=== PATIENT | female | born 1975 | race American Indian/Alaskan Native ===

== ENCOUNTER 2017-11-19 11:28 | Inpatient (IN) | payer BC ==
[2017-11-19] MEDS ORDERED: ceFAZolin IV 2 gm in Dextrose 2 GM/50 ML BAG IVPB ONE (13:14)
[2017-11-19] MEDS ORDERED: Propofol 10 mg/ml Inj (20 ML) ONE (13:15)
[2017-11-19] MEDS ORDERED: Midazolam 2 MG/2 ML VIAL ONE (13:16)
[2017-11-19] MEDS ORDERED: Oxycodone/Acetaminophen 5/325 mg Tab PO PRN (13:29)
[2017-11-19] MEDS ORDERED: Lactated Ringer's 1,000 ML IV SCH (13:30)
[2017-11-19] MEDS ORDERED: Neostigmine Methylsulfate 3mg/3ml Syringe IV ONE (15:08)
[2017-11-19] MEDS ORDERED: Rocuronium 10 mg/ml (5 ml) ONE (15:08)
[2017-11-19] MEDS ORDERED: Promethazine 12.5 mg/10 ml Syrup PO PRN ×3 (15:45→22:00)
[2017-11-19] MEDS: HYDROmorphone 0.5 mg/0.5 ml ISec IVP PRN ×2 (15:51→16:17)
[2017-11-19] MEDS: cefOXitin IV 2 gm in Dextrose 2 GM/50 ML BAG IVPB SCH (23:23)
[2017-11-20] MEDS: cefOXitin IV 2 gm in Dextrose 2 GM/50 ML BAG IVPB SCH (06:24)
[2017-11-20 08:04] LABS: BASO % 0.2 % (0.0-2.0); EOS % 0.1 % (0.0-4.0); HEMOGLOBIN 8.9 g/dL (11.0-16.0); LYMPH # 2.1 K/uL (1.0-4.3); LYMPH % 22.3 % (20.0-40.0); MEAN CELL VOLUME 82.2 fL (81.0-99.0); MEAN CORPUSCULAR HEMOGLOBIN 28.5 pg (27.0-31.0); MEAN CORPUSCULAR HGB CONC 34.6 g/dL (33.0-37.0); MEAN PLATELET VOLUME 8.3 fL (7.2-11.7); MONO # 0.8 K/uL (0.0-0.8); MONO % 8.7 % (0.0-10.0); NEUT # 6.5 K/uL (1.8-7.0); NEUT % 68.7 % (50.0-75.0); RBC 3.14 Mil/uL (3.80-5.20); RED CELL DISTRIBUTION WIDTH 13.3 % (11.5-14.5); WHITE BLOOD COUNT 9.5 K/uL (4.8-10.8)
[2017-11-20] MEDS ORDERED: Enoxaparin 40 mg Syringe SC SCH (10:00)
[2017-11-20 16:22] VITALS: TEMP 98.2; O2SAT 99
[2017-11-20 16:58] LABS: BASO # 0.1 K/uL (0.0-0.2); BASO % 0.6 % (0.0-2.0); EOS # 0.1 K/uL (0.0-0.7); EOS % 0.6 % (0.0-4.0); HEMOGLOBIN 8.9 g/dL (11.0-16.0); LYMPH # 2.6 K/uL (1.0-4.3); LYMPH % 26.7 % (20.0-40.0); MEAN CELL VOLUME 82.9 fL (81.0-99.0); MEAN CORPUSCULAR HEMOGLOBIN 27.5 pg (27.0-31.0); MEAN CORPUSCULAR HGB CONC 33.1 g/dL (33.0-37.0); MEAN PLATELET VOLUME 8.2 fL (7.2-11.7); MONO # 0.9 K/uL (0.0-0.8); MONO % 9.4 % (0.0-10.0); NEUT # 6.1 K/uL (1.8-7.0); NEUT % 62.7 % (50.0-75.0); RBC 3.26 Mil/uL (3.80-5.20); RED CELL DISTRIBUTION WIDTH 13.3 % (11.5-14.5); WHITE BLOOD COUNT 9.7 K/uL (4.8-10.8)
--- NOTE | 2017-11-20 17:21 | PCM.OP ---
Operative Report - Operative Report Date of Surgery/Procedure: 11/19/17 Time of Surgery/Procedure: 02:00 Surgeon: Dr. Flores Printer Slotter Feeder: Dr. Starks Anesthesia/Sedation: [place]. General Pre-Operative Diagnosis: Fibroid Uterus. Menometrorrhagia. Anemia Post-Operative Diagnosis: Smae Indication for Surgery: Fibroid uterus, Menometrorrhagia, Anemia Operative Findings: Uterus enlarged to 14-16 weeks size Fibroid. Both Adnexa intact Procedure/Operation Description: Supracervical Hysterectomy Estimated Blood Loss: 150 cc Complications: None Specimen: Uterus Discharge & Condition: Satisfactory
--- NOTE | 2017-11-20 17:47 | CP.PCM.PN ---
Subjective - Date & Time of Evaluation Date of Evaluation: 11/20/17 Time of Evaluation: 17:40 - Subjective Subjective: POD #1 No C/O VS Stable Abdomen Soft Wound Clean P: Home in AM if stable Objective - Vital Signs/Intake and Output Vital Signs (last 24 hours): Temp Pulse Resp BP Pulse Ox 98.2 F 75 18 141/88 99 11/20/17 16:00 11/20/17 16:00 11/20/17 16:00 11/20/17 16:00 11/20/17 16:00 - Medications Medications: Current Medications Enoxaparin Sodium (Lovenox) 40 mg SC DAILY MOSES Last Admin: 11/20/17 09:17 Dose: 40 mg Lactated Ringer's (Lactated Ringer's) 1,000 mls @ 125 mls/hr IV .Q8H MOSES Oxycodone/Acetaminophen (Percocet 5/325 Mg Tab) 1 tab PO Q4 PRN PRN Reason: Pain, moderate (4-7) Stop: 11/22/17 13:30 Promethazine HCl (Phenergan Syrup) 25 mg PO HS@2200 PRN PRN Reason: Cough - Labs Labs: 11/20/17 16:50
[2017-11-21 08:13] VITALS: BP 94/62; PULSE 82; RESP 18
--- NOTE | 2017-11-29 09:05 | OP ---
PROCEDURE DATE: 11/19/2017 NATURE OF OPERATION: Supracervical hysterectomy. ATTENDING SURGEON: Dontae Flores MD SOAP CHIPPER: Jamari Starks MD FOREST SCIENTIST: Nate Dorsey MD KIND OF ANESTHESIA: General. PREOPERATIVE DIAGNOSIS: Fibroid uterus. POSTOPERATIVE DIAGNOSIS: Fibroid uterus. FINDINGS: The uterus was enlarged to 14-16 weeks' size of fibroid. Both adnexa appear to be intact. ESTIMATED BLOOD LOSS: 150 mL. DESCRIPTION OF PROCEDURE: Under general anesthesia, the patient was placed in supine position. Routine prep was done. The anterior abdominal wall was draped, and the abdominal cavity was entered through a vertical midline incision. Pelvic organs were palpated and visualized. Self-retaining retractor was placed in the abdominal cavity, and the bowel loops were packed away using wet gauze pack. The uterus was grasped with the tenaculum forceps and lifted up. The round ligaments were clamped, cut, and ligated with a 0 Vicryl suture ligature bilaterally. The uterovesical fold of peritoneum was opened. The bladder was pushed downward gently using a sponge stick. The index finger was pushed bluntly through the avascular part of broad ligament perforating its posterior layer close to the uterus below the level of attachment of round ligament to fallopian tube and utero-ovarian ligament. The right and left ovaries were preserved by clamping and dividing ovarian ligament and doubly ligating with 0 Vicryl suture ligature. The posterior peritoneal reflection was incised, and the uterine vessels were skeletonized. Uterine vessels were clamped with Julia clamps bilaterally, cut and ligated with the 0 Vicryl suture ligature. At this point, the supracervical hysterectomy was done, and the cervix was sutured with the [id number] stitches. No signs of bleeding were noted and the peritoneum was cleaned. Abdominal closure was then started. The peritoneum was closed with 0 chromic catgut continuous stitch, continuous interlocking stitches of 0 Vicryl used for fascia, and intraoperative #2-0 plain catgut was used for subcutaneous tissue. The skin was closed with the юлия. Wound was cleaned and sterile dressing applied. At the end of the procedure, urine was clear. The patient tolerated the procedure well and was sent to the recovery room in satisfactory condition. Dontae Flores MD [facility] # [id number]
== END 2017-11-21 10:50 | disposition home or self-care (01) | DRG 743 ==
LOC: C.9S 11:28 → C.4M 13:57
PROVIDERS: ADMIT Obstetrics & Gynecology Gynecology; ATTEND Obstetrics & Gynecology Gynecology
PROC: 0UT90ZL Resection of Uterus, Supracervical, Open Approach (ICD-10-PCS; principal; 2017-11-19 13:00)
DX: D25.1 Intramural leiomyoma of uterus (principal); N92.1 Excessive and frequent menstruation with irregular cycle; D64.9 Anemia, unspecified